=== PATIENT | female | born 1985 | race Caucasian/White ===

== ENCOUNTER 2021-09-15 12:13 | Emergency (ER) | payer MEDICAID ==
[~2021-09-15] VITALS: Ht 154.9 cm; Wt 117.9 kg
[2021-09-15] MEDS ORDERED: AZIT250T13 PO (18:01)
[2021-09-15] MEDS ORDERED: PROM118S5 PO (18:02)
[2021-09-15 18:16] VITALS: BP 121/80
== END 2021-09-15 18:18 | disposition home or self-care (01) ==
LOC: ER 12:27
DX: B34.9 Viral infection, unspecified (principal); H66.93 Otitis media, unspecified, bilateral; R00.0 Tachycardia, unspecified; Z88.0 Allergy status to penicillin; I10 Essential (primary) hypertension; Z87.448 Personal history of other diseases of urinary system
CPT/HCPCS: 71045; 87426; 87804; 93005; 99285; C9803 ×2; U0003